=== PATIENT | male | born 1975 | race Two or more races ===

== ENCOUNTER 2018-03-12 19:23 | Emergency (ER) | payer MEDICAID ==
[~2018-03-12] VITALS: Ht 177.8 cm; Wt 81.6 kg
[2018-03-12] VITALS (20 sets, daily range): BP systolic 122–156; BP diastolic 71–93
[2018-03-12] MEDS ORDERED: LORazepam Inj 2mg/ml 1ml IM ONE (19:30)
[2018-03-12] MEDS ORDERED: Haloperidol 5mg/ml Inj IM ONE ×4 (19:30→21:45)
[2018-03-12] MEDS ORDERED: DiphenhydrAMINE 50mg/ml Inj IM ONE (19:30)
--- NOTE | 2018-03-12 19:31 | Emergency Room Report ---
History of Present Illness General Chief Complaint: Altered Level of Consciousness Source: EMS Present Illness HPI Paramedics were called for alcohol intoxication. 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 Denies any observed trauma. The patient was lethargic. When patient was placed in the back of the mdm developer rig he started becoming violent. He was restrained and also then started spitting at paramedics. At that point they put a spit mask on. They were able to perform an Accu-Chek that was normal. There were unable to start an IV. The patient's refusing to answer but states that he will kill us all this once he gets out of restraints. Allergies: Coded Allergies: UNABLE TO ASSESS (Unverified , 03/12/18) Patient History Limited by: other - patient refuses to answer Past Medical History: see triage record Social History: Reports: alcohol use Social History Narrative unknown where he lives Reviewed Nursing Documentation: PMH: Agreed; PSxH: Agreed Nursing Documentation-PMH Past Medical History: No Stated History Review of Systems All Other Systems: limited Physical Exam Vital Signs Date Time Temp Pulse Resp B/P (MAP) Pulse Ox O2 Delivery O2 Flow Rate FiO2 03/12/18 19:08 98.0 115 18 131/80 98 Room Air 98.1 Sp02 EP Interpretation: reviewed, normal General Appearance: well appearing, no apparent distress, other - refuses to answer questions Head: normocephalic Eyes: bilateral eye PERRL, bilateral eye Scleral Injection ENT: moist mucus membranes Neck: supple Respiratory: lungs clear, normal breath sounds Cardiovascular #1: regular rate, rhythm Cardiovascular #2: 2+ radial (R) Gastrointestinal: normal inspection, non tender, no mass, non-distended, decreased bowel sounds Musculoskeletal: back normal, normal range of motion Neurologic: alert, responsive, yardmaster III-XII nml as tested, motor strength/tone normal, speech normal Psychiatric: other - not answering questions, threaenting violence Skin: normal inspection, warm/dry Medical Decision Making Medical: Alcohol Abuse Reaction to Intervention: No change Restraint Reassesment I, Danie Palomo MD, have personally evaluated this patient. Laboratory tests have been reviewed and addressed accordingly. The patient is deemed to present a danger to themselves and/or others. This is based on the exam, history ( provided by patient, EMS/[facility] and/or family) and observed or reported behavior. Attempts for non-invasive measures have been considered and/or attempted, however, have been futile. It is in the best interest of the nursing staff, the patient, and others involved in this patient's care that behavioral restraints be applied. Patient evaluation reveals the following: probable alcohol intoxication, threats to staff and not respond to attempts to deescalate. Diagnostic Impression: Primary Impression: Altered level of consciousness Additional Impressions: Acute alcohol intoxication Qualified Codes: F10.929 - Alcohol use, unspecified with intoxication, unspecified PCP (phencyclidine) abuse ER Course Patient presents with a history of alcohol intake throughout the day and altered mentation with threats of violence. Differential includes acute alcohol intoxication, other drug involvement, electrolyte abnormality, myocardial infarction, brain bleed amongst others. Initially the patient needs to be sedated as no workup is possible when he is violent like this. Behavioral restraints are ordered. In addition to that, Haldol, Benadryl and Ativan were ordered IM. When the patient is sedated, evaluation will be with EKG, chest x-ray, CT the head and labs. The patient will also receive IV hydration. Patient still threatening after initial dose of Haldol, ativan and benadryl. Repeat Haldol. Improved, but still fighting. Haldol 5 ordered. Patient + for PCP and alcohol. CBC and CMP normal. CK normal. Patient sedated and able to go to CT. Signed out to Dr. Richard. Laboratory Tests Test 03/12/18 21:20 White Blood Count 7.7 K/UL (4.8-10.8) Red Blood Count 3.12 M/UL (4.70-6.10) L Hemoglobin 10.9 G/DL (14.2-18.0) L Hematocrit 30.7 % (42.0-52.0) L Mean Corpuscular Volume 98 FL (80-99) Mean Corpuscular Hemoglobin 35.1 PG (27.0-31.0) H Mean Corpuscular Hemoglobin Concent 35.6 G/DL (32.0-36.0) Red Cell Distribution Width 14.0 % (11.6-14.8) Platelet Count 318 K/UL (150-450) Mean Platelet Volume 7.3 FL (6.5-10.1) Neutrophils (%) (Auto) 60.3 % (45.0-75.0) Lymphocytes (%) (Auto) 31.2 % (20.0-45.0) Monocytes (%) (Auto) 7.0 % (1.0-10.0) Eosinophils (%) (Auto) 0.6 % (0.0-3.0) Basophils (%) (Auto) 0.9 % (0.0-2.0) Urine Color Pale yellow Urine Appearance Clear Urine pH 7 (4.5-8.0) Urine Specific [place] 1.005 (1.005-1.035) Urine Protein Negative (NEGATIVE) Urine Glucose (UA) Negative (NEGATIVE) Urine Ketones Negative (NEGATIVE) Urine Blood Negative (NEGATIVE) Urine Nitrite Negative (NEGATIVE) Urine Bilirubin Negative (NEGATIVE) Urine Urobilinogen Normal MG/DL (0.0-1.0) Urine Leukocyte Esterase Negative (NEGATIVE) Sodium Level 140 MMOL/L (136-145) Potassium Level 4.1 MMOL/L (3.5-5.1) Chloride Level 105 MMOL/L (98-107) Carbon Dioxide Level 26 MMOL/L (21-32) Anion Gap 10 mmol/L (5-15) Blood Urea Nitrogen 12 mg/dL (7-18) Creatinine 0.9 MG/DL (0.55-1.30) Estimate Glomerular Filtration Rate > 60 mL/min (>60) Glucose Level 118 MG/DL (74-106) H Calcium Level Pending Total Bilirubin 0.4 MG/DL (0.2-1.0) Aspartate Amino Transferase (AST) 80 U/L (15-37) H Alanine Aminotransferase (ALT) 60 U/L (12-78) Alkaline Phosphatase 296 U/L (46-116) H Total Creatine Kinase 294 U/L (26-308) Troponin I 0.006 ng/mL (0.000-0.056) Total Protein 7.5 G/DL (6.4-8.2) Albumin 3.0 G/DL (3.4-5.0) L Globulin 4.5 g/dL Albumin/Globulin Ratio 0.7 (1.0-2.7) L Salicylates Level 0.3 ug/mL (2.8-20) L Urine Opiates Screen Negative (NEGATIVE) Acetaminophen Level < 2 MCG/ML (10-30) L Urine Barbiturates Screen Negative (NEGATIVE) Phencyclidine (PCP) Screen Positive (NEGATIVE) H Urine Amphetamines Screen Negative (NEGATIVE) Urine Benzodiazepines Screen Negative (NEGATIVE) Urine Cocaine Screen Negative (NEGATIVE) Urine Marijuana (THC) Screen Negative (NEGATIVE) Serum Alcohol 315 mg/dL EKG Diagnostic Results Rate: tachycardiac ST Segments: no acute changes Rhythm Strip Diag. Results Rhythm: no PVC's, no ectopy, other - ST Last Vital Signs Date Time Temp Pulse Resp B/P (MAP) Pulse Ox O2 Delivery O2 Flow Rate FiO2 03/12/18 23:42 98.2 120 18 98 Room Air 03/12/18 19:25 131/80 Status: improved Danie Palomo M.D. Mar 12, 2018 19:31
[2018-03-12 21:41] LABS: APPEARANCE,URINE CLEAR; BILIRUBIN, URINE NEGATIVE (NEGATIVE); COLOR,URINE PALE YELLOW; GLUCOSE, URINE (UA) NEGATIVE (NEGATIVE); KETONES,URINE NEGATIVE (NEGATIVE); LEUKOCYTE ESTERASE ,URINE NEGATIVE (NEGATIVE); NITRITE,URINE NEGATIVE (NEGATIVE); PH,URINE 7 (4.5-8.0); PROTEIN,URINE NEGATIVE (NEGATIVE); UROBILINOGEN,URINE NORMAL MG/DL (0.0-1.0)
[2018-03-12 21:51] LABS: BASOPHILS % (AUTO) 0.9 % (0.0-2.0); EOSINOPHILS % (AUTO) 0.6 % (0.0-3.0); HEMATOCRIT 30.7 % (42.0-52.0); HEMOGLOBIN 10.9 G/DL (14.2-18.0); LYMPHOCYTES % (AUTO) 31.2 % (20.0-45.0); MEAN CORPUSCULAR VOLUME 98 FL (80-99); NEUTROPHILS % (AUTO) 60.3 % (45.0-75.0); PLATELET COUNT 318 K/UL (150-450); RED BLOOD COUNT 3.12 M/UL (4.70-6.10); WHITE BLOOD COUNT 7.7 K/UL (4.8-10.8)
[2018-03-12 22:20] LABS: ALANINE AMINOTRANSFERASE 60 U/L (12-78); ALBUMIN/GLOBULIN RATIO 0.7 (1.0-2.7); ALKALINE PHOSPHATASE 296 U/L (46-116); ANION GAP 10 mmol/L (5-15); ASPARTATE AMINO TRANSFERASE 80 U/L (15-37); BILIRUBIN,TOTAL 0.4 MG/DL (0.2-1.0); BLOOD UREA NITROGEN 12 mg/dL (7-18); CARBON DIOXIDE 26 MMOL/L (21-32); CHLORIDE 105 MMOL/L (98-107); CREATINE KINASE 294 U/L (26-308); CREATININE 0.9 MG/DL (0.55-1.30); POTASSIUM 4.1 MMOL/L (3.5-5.1); SODIUM 140 MMOL/L (136-145)
[2018-03-12 22:43] LABS: CALCIUM 7.9 MG/DL (8.5-10.1)
[2018-03-13] VITALS (33 sets, daily range): BP systolic 106–139; BP diastolic 53–93
--- NOTE | 2018-03-13 03:27 | Emergency Room Report ---
Physical Exam Vital Signs Date Time Temp Pulse Resp B/P (MAP) Pulse Ox O2 Delivery O2 Flow Rate FiO2 03/12/18 19:08 98.0 115 18 131/80 98 Room Air 98.1 Medical Decision Making Diagnostic Impression: Primary Impression: Altered level of consciousness Additional Impressions: PCP (phencyclidine) abuse Acute alcohol intoxication Qualified Codes: F10.929 - Alcohol use, unspecified with intoxication, unspecified ER Course This patient was s/o by previous MD requested to f/u labs, CT. Pt. did not have CT however I reevaluated him three times during past several hours. He is alert and oriented, he is argumentative and perseverates on his preferred topics but he is not altered c/w neuro injury. PCP, alcohol on board. I took off one restraint and he has been cooperative. Anticipate being able to eventually d/c patient. Last Vital Signs Date Time Temp Pulse Resp B/P (MAP) Pulse Ox O2 Delivery O2 Flow Rate FiO2 03/13/18 02:00 98.8 99 16 98 Room Air 03/12/18 19:25 131/80 Condition: Stable Referrals: NOT CHOSEN IPA/,REFERRING (PCP) Patient Instructions: Substance Use Disorder Blake Richard M.D. Mar 13, 2018 03:26
== END 2018-03-13 09:11 | disposition home or self-care (01) ==
LOC: EMR 19:53 → EDBD 19:53 → EMR 03-13 09:11
DX: R41.82 Altered mental status, unspecified (principal); F10.129 Alcohol abuse with intoxication, unspecified; F16.10 Hallucinogen abuse, uncomplicated; R53.83 Other fatigue
CPT/HCPCS: 36415; 80053; 80307; 80329; 81003; 82550; 84484; 85025; 96360; 96372; 99284; J1200; J1630